=== PATIENT | female | born 1980 | race Caucasian/White ===

== ENCOUNTER 2019-09-14 11:31 | Emergency (ER) | payer OTHER, SELFPAY ==
[2019-09-14 11:38] VITALS: BP 117/72; PULSE 56; RESP 16; TEMP 36.9; O2SAT 100
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
== END 2019-09-14 11:55 | disposition home or self-care (01) ==
PROVIDERS: Emergency Provider Nurse Practitioner Family
DX: L03.114 Cellulitis of left upper limb (principal)
CPT/HCPCS: 99213; G0463

== ENCOUNTER 2019-12-20 11:06 | Emergency (ER) | payer OTHER, SELFPAY ==
--- NOTE | ~2019-12-20 | XR_ITS ---
EXAMINATION: XR foot RT min 3V DATE: 12/20/2019 11:31 INDICATION: Pain at right first metatarsal. TECHNIQUE: 4 views of right foot were obtained. COMPARISON: None. FINDINGS: Bone alignment is normal. No fracture. Joint spaces are well maintained. IMPRESSION: 1. Normal right foot. Reviewed, dictated and finalized at location A. IMPRESSION: 1. Normal right foot.
[2019-12-20 11:13] VITALS: BP 105/57; PULSE 69; RESP 16; TEMP 36.6; O2SAT 100
--- NOTE | 2019-12-20 11:14 | ED.LOWEXIN ---
HPI - Extremity Injury (Lower) General Chief Complaint: Extremity Injury, Lower Stated Complaint: right foot pain Time Seen by Provider: 12/20/19 11:15 Source: patient and RN notes reviewed History of Present Illness HPI Narrative: Patient is a 39-year-old female who presents the urgent care with complaints of right foot pain. Patient states that she works at [employer] and does a lot of hiking off trails. Patient states that her hiking boots are very old. States that she notices her right foot is more painful and achy after being on her feet for long periods of time. Patient denies of any recent injury or fall. With the exception, of dropping a tree branch on her right foot over 1 week ago, unassociated with any pain now. Patient has been using Tylenol as needed for pain. No other acute complaints. No acute distress noted. Patient read the plan of care. Related Data Allergies Allergy/AdvReac Type Severity Reaction Status Date / Time amoxicillin [From Augmentin] Allergy Rash Verified 09/14/19 11:43 clavulanic acid Allergy Rash Verified 09/14/19 11:43 [From Augmentin] Penicillins Allergy Rash Verified 09/14/19 11:42 Review of Systems Review of Systems: Narrative: CONSTITUTIONAL: Denies fever, chills, or sweats. EYES: Denies visual changes, redness, or discharge. ENT: Denies rhinorrhea, congestion, sore throat, or otalgia. CARDIOVASCULAR: Denies chest pain, palpitations, or edema. RESPIRATORY: Denies cough or dyspnea. GASTROINTESTINAL: Denies abdominal pain, nausea, vomiting, or diarrhea. GENITOURINARY: Denies dysuria or hematuria. SKIN: Denies rash or itching. MUSCULOSKELETAL: Reports of pain in the right foot NEUROLOGIC: Denies headache, numbness, or weakness. All other systems reviewed are negative, except as documented in HPI. PMFSH Comments At the time of my signature, I reviewed and agree with the nursing past medical, surgical, social, and family history. There is no relevant family history pertinent to the patient complaint. Exam Narrative: Exam Narrative: GENERAL: This is a well-nourished, well-developed patient, in no apparent distress. HEAD: normocephalic, atraumatic. EYES: PERRL. Sclera clear/white. Vision is grossly intact. EARS: External ears normal NOSE: External nose normal with no obvious nasal discharge, nares without redness, no rhinorrhea. THROAT: Mucous membranes moist, NECK: Neck supple, SKIN: warm, intact with no suspicious lesions or rash, good texture and turgor. NEURO: awake, alert, and oriented to person, place and time. There were no obvious focal neurologic abnormalities. EXTREMITIES: No obvious abnormality, ecchymosis, erythema or edema noted to the right foot. No tenderness over the heel. Mild tenderness to the arch of the right foot and into the ball of the right foot. Course Vital Signs Vital signs: Vital Signs Temperature 98 F 12/20/19 11:13 Pulse Rate 69 12/20/19 11:13 Respiratory Rate 16 12/20/19 11:13 Blood Pressure 105/57 L 12/20/19 11:13 Pulse Oximetry 100 12/20/19 11:13 Temperature 98 F 12/20/19 11:13 Pulse Rate 69 12/20/19 11:13 Respiratory Rate 16 12/20/19 11:13 Blood Pressure 105/57 L 12/20/19 11:13 Pulse Oximetry 100 12/20/19 11:13 Reviewed MDM - Extremity Injury (Lower) MDM Narrative Medical decision making narrative: Reviewed x-ray results with the patient. She is aware the x-ray was negative for any abnormality or fracture. Advised the patient to follow plantar fasciitis exercises as written on her discharge paperwork. Use Tylenol/ibuprofen. May be worth it to invest in new work boots/hiking boots. Wear supportive shoes. After long periods on your feet, ice and elevate for comfort. Follow-up with your PCP within 2 to 5 days if her worsening symptoms or failure to improve. Differential Diagnosis Differential diagnosis: Likely ankle sprain and strain, fracture of femur and puncture wound of foot Imaging Data Radiologist's
== END 2019-12-20 11:49 | disposition home or self-care (01) ==
PROVIDERS: Emergency Provider Nurse Practitioner Family
DX: M72.2 Plantar fascial fibromatosis (principal)
CPT/HCPCS: 73630; 99213; G0463